=== PATIENT | male | born 1955 | race Caucasian/White ===

== ENCOUNTER 2019-01-25 08:12 | Day surgery (SDC) | payer MEDICARE, OTHER ==
[~2019-01-25] VITALS: Ht 172.7 cm; Wt 87.9 kg
[~2019-01-25 08:12] MED LIST: ATOR10 PO; CLOP75 PO; CRUTCH3 XX; CYCL10; Keflex500 MG PO; LISI5 PO; Lopressor 25 mg25 MG PO; Norco 5-325 Ta1 EACH PO; Prinivil10 MG; TAMS.4ER PO
--- NOTE | 2019-01-25 09:11 | NUR ---
Ambulatory in Day Surgery History, Chart, Medications and Allergies reviewed before start of procedure. Lungs clear T/O to Auscultation. Patient confirms NPO status and agrees with scheduled surgery. Pre-Op teaching done. Pt verbalizes understanding.
--- NOTE | 2019-01-25 15:32 | NUR ---
01/25/19 1532 Bibi Whitaker CHART AUDITS AND VERIFICATIONS.
--- NOTE | 2019-01-26 00:58 | NUR ---
ON KEEPLING LEG SUPPORTED WITH PILLOW BETWEEN KNEES.
--- NOTE | 2019-01-26 04:17 | NUR ---
shift summary PT&O X4 T/O SHIFT. pod#1 R SOFI; DRESSING CDI T/O SHIFT. PT DENIES N/T IN EXT. PAIN MANAGED PER EMAR; CRYOTHERAPY TO R KNEE. PT DENIES SOB, BP AND NAUSEA T/O SHIFT. PT UP WITH FWW, GB AND SBA TO AMBULATE IN CERNA. CALL LIGHT IN REACH; PT DEMONSTRATES USE. SCD'S TO BLE'S. WCTM UNTIL REPORT TO DAY SHIFT RN.
[2019-01-26 04:50] LABS: BASOPHILS ABSOLUTE AUTO 0.01 K/mm3 (0.00-0.23); BASOPHILS PERCENT AUTO 0 % (0-2); EOSINOPHILS ABSOLUTE AUTO 0.01 K/mm3 (0.00-0.68); EOSINOPHILS PERCENT AUTO 0 % (0-6); Hematocrit 36.6 % (37.0-53.0); Hemoglobin 12.1 g/dL (13.5-17.5); IMMATURE GRAN ABSOLUTE AUTO 0.04 K/mm3 (0.00-0.10); IMMATURE GRAN PERCENT AUTO 0 % (0-1); LYMPHOCYTES PERCENT AUTO 7 % (21-46); MONOCYTES ABSOLUTE AUTO 0.82 K/mm3 (0.16-1.47); MONOCYTES PERCENT AUTO 7 % (4-13); Mean Corpuscular HGB 33.3 pg (26.0-34.0); Mean Corpuscular HGB Conc 33.1 g/dL (31.5-36.5); Mean Corpuscular Volume 101 fL (80-100); Mean Platelet Volume 9.7 fL (9.1-12.4); NEUTROPHILS ABSOLUTE AUTO 10.47 K/mm3 (1.96-9.15); NEUTROPHILS PERCENT AUTO 86 % (41-73); Platelet Count 235 K/mm3 (150-400); RDW Standard Deviation 44.1 fL (35.1-46.3); Red Blood Cell Count 3.63 M/mm3 (4.30-5.90); White Blood Cell Count 12.15 K/mm3 (4.00-11.30)
[2019-01-26 05:12] LABS: Anion Gap 5 mmol/L (6-16); Blood Urea Nitrogen 13 mg/dL (8-24); Bun/Creatinine Ratio 18.2 (12.0-20.0); CO2, Blood 27 mmol/L (21-32); Calcium, Blood 8.6 mg/dL (8.5-10.1); Chloride, Blood 105 mmol/L (98-108); Creatinine, Blood 0.72 mg/dL (0.60-1.20); Glomerular Filtration Rate >60 (60-); Glucose, Blood 134 mg/dL (70-99); Magnesium, Blood 2.1 mg/dL (1.6-2.4); Potassium, Blood 4.2 mmol/L (3.5-5.5); Sodium, Blood 137 mmol/L (136-145)
[2019-01-26] MEDS ORDERED: OXYC5 PO (15:22)
[2019-01-26] MEDS ORDERED: ASPI325 PO (15:22)
--- NOTE | 2019-01-26 15:56 | NUR ---
DISCHARGE PT HAS DONE WELL TODAY. PAIN WELL MANAGED, CLEARED THERAPY, SCRIPT AND DRSGS GIVEN. ESCORTED OUT VIA W/C.
== END 2019-01-26 15:56 | disposition home or self-care (01) ==
LOC: ORSCMMR 08:12 → ORD 11:00 → SURS 14:20 → ORSCMMR 01-26 15:56 → SURS 01-26 15:56
PROVIDERS: Orthopaedic Surgery
PROC: 0SRC0J9 Replacement of Right Knee Joint with Synthetic Substitute, Cemented, Open Approach (ICD-10-PCS; principal; 2019-01-25 11:00)
DX: M17.11 Unilateral primary osteoarthritis, right knee (principal); I10 Essential (primary) hypertension; E78.00 Pure hypercholesterolemia, unspecified; I69.339 Monoplegia of upper limb following cerebral infarction affecting unspecified side; Z79.899 Other long term (current) drug therapy
CPT/HCPCS: 36415; 73560-RT; 80048; 83735; 85025; 86850; 86900; 86901; 88300; 97110; 97116; 97162; 97530; C1713; C1776; J0171; J0690; J0735; J1100; J1885; J2250; J2405; J2704; J2795; J3010; J7120

== ENCOUNTER 2019-12-20 06:58 | Day surgery (SDC) | payer MEDICARE, OTHER ==
[~2019-12-20] VITALS: Ht 172.7 cm; Wt 89.1 kg
[~2019-12-20 06:58] MED LIST changes: +ASPI325 PO; +CLOP75; +OXYC5 PO
[2019-12-20] MEDS ORDERED: TAMS.4ER (07:27)
== END 2019-12-20 08:58 | disposition home or self-care (01) ==
LOC: ORSCSDS 06:58
PROVIDERS: Surgery
PROC: 0DBP8ZX Excision of Rectum, Via Natural or Artificial Opening Endoscopic, Diagnostic (ICD-10-PCS; principal; 2019-12-20 08:00)
PROC: 0DBK8ZX Excision of Ascending Colon, Via Natural or Artificial Opening Endoscopic, Diagnostic (ICD-10-PCS; principal; 2019-12-20 08:00)
DX: Z12.11 Encounter for screening for malignant neoplasm of colon (principal); Z86.010 Personal history of colon polyps; D12.2 Benign neoplasm of ascending colon; D12.8 Benign neoplasm of rectum; I10 Essential (primary) hypertension; Z86.73 Personal history of transient ischemic attack (TIA), and cerebral infarction without residual deficits; Z79.899 Other long term (current) drug therapy
CPT/HCPCS: J0461; J2405; J2704; J7120

== ENCOUNTER 2020-11-02 11:20 | Day surgery (SDC) | payer MEDICARE, OTHER ==
[~2020-11-02] VITALS: Ht 172.7 cm; Wt 90.2 kg
[~2020-11-02 11:20] MED LIST changes: +TAMS.4ER
--- NOTE | 2020-11-02 12:52 | NUR ---
11/02/20 1252 Mack Jose 0.15MG EPI MIXED WITH 30ML'S 0.5% BUPIVACAINE PL TO ACHIEVE SOLUTION OF 1:200,000. 5ML OF SOLUTION INJ INTO OPSITE BY VTRICH AT 1245.
== END 2020-11-02 13:51 | disposition home or self-care (01) ==
LOC: ORSCSDS 11:20
PROVIDERS: Podiatrist Foot & Ankle Surgery
PROC: 0QBQ0ZZ Excision of Right Toe Phalanx, Open Approach (ICD-10-PCS; principal; 2020-11-02 12:40)
DX: M89.8X7 Other specified disorders of bone, ankle and foot (principal); I10 Essential (primary) hypertension; Z79.899 Other long term (current) drug therapy
CPT/HCPCS: J0171; J0690; J2250; J2704; J3010; J7120

== ENCOUNTER 2023-03-27 09:16 | Day surgery (SDC) | payer MEDICARE, OTHER ==
[~2023-03-27] VITALS: Ht 172.7 cm; Wt 92.5 kg
--- NOTE | 2023-03-27 12:13 | NUR ---
03/27/23 1213 HEBRER SOTELO UTILIZED ON 4 QTIPS BY IN PROCEDURE. END NOTE.
--- NOTE | 2023-03-27 13:50 | NUR ---
03/27/23 1350 Familia Cabrera IV REMOVED INTACT. SITE WNL.
[2023-03-27 14:03] VITALS: BP 149/69
== END 2023-03-27 13:45 | disposition home or self-care (01) ==
LOC: ORSCSDS 09:16
PROVIDERS: Podiatrist Foot & Ankle Surgery
PROC: 0HBRXZZ Excision of Toe Nail, External Approach (ICD-10-PCS; principal; 2023-03-27 11:00)
PROC: 0QBQ0ZZ Excision of Right Toe Phalanx, Open Approach (ICD-10-PCS; principal; 2023-03-27 11:00)
DX: M89.8X7 Other specified disorders of bone, ankle and foot (principal); L60.0 Ingrowing nail; I10 Essential (primary) hypertension; E78.00 Pure hypercholesterolemia, unspecified; I69.341 Monoplegia of lower limb following cerebral infarction affecting right dominant side; Z79.899 Other long term (current) drug therapy
CPT/HCPCS: A9270; J0171; J0690; J1100; J2405; J2704; J2765; J2795; J7120

== ENCOUNTER 2025-01-27 16:37 | Emergency (ER) | payer MEDICARE, OTHER ==
[~2025-01-27] VITALS: Ht 172.7 cm; Wt 93.0 kg
[2025-01-27 17:21] LABS: BASOPHILS ABSOLUTE AUTO 0.01 K/mm3 (0.00-0.23); BASOPHILS PERCENT AUTO 0 % (0-2); EOSINOPHILS ABSOLUTE AUTO 0.03 K/mm3 (0.00-0.68); EOSINOPHILS PERCENT AUTO 1 % (0-6); Hematocrit 34.0 % (37.0-53.0); Hemoglobin 11.5 g/dL (13.5-17.5); IMMATURE GRAN ABSOLUTE AUTO 0.01 K/mm3 (0.00-0.10); IMMATURE GRAN PERCENT AUTO 0 % (0-1); LYMPHOCYTES ABSOLUTE AUTO 0.38 K/mm3 (0.84-5.20); LYMPHOCYTES PERCENT AUTO 9 % (21-46); MONOCYTES ABSOLUTE AUTO 0.60 K/mm3 (0.16-1.47); MONOCYTES PERCENT AUTO 14 % (4-13); Mean Corpuscular HGB Conc 33.8 g/dL (31.5-36.5); Mean Corpuscular Volume 97 fL (80-100); NEUTROPHILS ABSOLUTE AUTO 3.14 K/mm3 (1.96-9.15); NEUTROPHILS PERCENT AUTO 75 % (41-73); NRBC ABSOLUTE 0.00 K/mm3 (0.00-0.02); NRBC Auto 0.0 /100 WBC (0.0-0.2); Platelet Count 163 K/mm3 (150-400); RDW Coefficient Variation 12.6 % (11.7-14.2); RDW Standard Deviation 45.1 fL (35.1-46.3)
[2025-01-27 17:26] LABS: CORONAVIRUS COVID-19 AG Positive (NEGATIVE)
[2025-01-27 18:23] VITALS: BP 126/68
[2025-01-28] MEDS ORDERED: PAXLOVID 150-11 EAC2 PO (15:49)
== END 2025-01-27 18:46 | disposition home or self-care (01) ==
LOC: ER 16:37
PROVIDERS: Student in an Organized Health Care Education/Training Program
DX: U07.1 COVID-19 (principal); I10 Essential (primary) hypertension
CPT/HCPCS: 71046; 83690; 84484; 85025; 87428-QW; 93005; 93010; 99285-25